=== PATIENT | female | born 1965 | race African-American/Black ===

== ENCOUNTER 2019-05-28 10:04 | Day surgery (SDC) | payer BC ==
[2019-05-27 17:05] VITALS: BMI 27.1
[2019-05-28] MEDS ORDERED: PROPOFOL 20 ML ONE ×2 (10:28)
[2019-05-28 12:08] VITALS: TEMP 98.5
[2019-05-28 12:20] VITALS: BP 135/83; PULSE 56
--- NOTE | 2019-05-30 15:13 | PATH ---
Surgical Pathology Report Patient Name: ALBERTA MYRICK [facility]. Rec. #: [id number] /Age/Gender: 1965 (Age: 53) / F Account: [id number] Location: [facility] Taken: 05/28/2019 Received: 05/28/2019 Reported: 05/30/2019 Physicians: Andressa Pablo M.D. Specimen(s) Received A: SECOND PORTION DUODENUM B: ANTRUM C: GE JUNCTION Clinical History Abdominal pain Postoperative diagnosis: Erosive gastritis Final Diagnosis A. DUODENUM, SECOND PORTION, BIOPSY: DUODENAL MUCOSA WITH NO PATHOLOGIC CHANGES. NO HISTOLOGIC EVIDENCE OF GLUTEN SENSITIVE ENTEROPATHY (CELIAC SPRUE) IDENTIFIED. B. STOMACH, ANTRUM, BIOPSY: GASTRIC ANTRAL MUCOSA WITH MILD CHRONIC GASTRITIS. IMMUNOSTAIN FOR H. PYLORI IS NEGATIVE. C. GE JUNCTION, BIOPSY: SQUAMOUS AND GASTRIC MUCOSA WITH CHRONIC INFLAMMATION. NO INTESTINAL METAPLASIA IDENTIFIED (NO JOHNSON'S IDENTIFIED). Electronically Signed Fredy Lomas M.D. Gross Description A. Received in formalin, labeled "biopsy second portion of duodenum" is a kc, irregular portion of soft tissue measuring 0.6 cm. in greatest dimension. The specimen is submitted in toto in one cassette. B. Received in formalin, labeled "biopsy gastric antrum" is a kc, irregular portion of soft tissue measuring 0.3 cm. in greatest dimension. The specimen is submitted in toto in one cassette. C. Received in formalin, labeled "biopsy GE junction" are 2 kc, irregular portions of soft tissue measuring 0.2 and 0.3 cm. in greatest dimension. The specimens are submitted in toto in one cassette. 05/29/2019 saudi05/29/2019
== END 2019-05-28 12:45 | disposition home or self-care (01) ==
LOC: FASU-ENDO 10:04
PROVIDERS: ATTEND Internal Medicine Gastroenterology
PROC: 0DB68ZX Excision of Stomach, Via Natural or Artificial Opening Endoscopic, Diagnostic (ICD-10-PCS; 2019-05-28)
PROC: 0DB48ZX Excision of Esophagogastric Junction, Via Natural or Artificial Opening Endoscopic, Diagnostic (ICD-10-PCS; 2019-05-28)
PROC: 0DB98ZX Excision of Duodenum, Via Natural or Artificial Opening Endoscopic, Diagnostic (ICD-10-PCS; principal; 2019-05-28 11:29)
DX: K29.50 Unspecified chronic gastritis without bleeding (principal); K20.8 Other esophagitis; R10.13 Epigastric pain
CPT/HCPCS: 88305-TC; 88342-TC

== ENCOUNTER 2022-05-26 07:26 | Day surgery (SDC) | payer BC, OTHER ==
[2022-05-23 17:13] VITALS: BMI 28.4
[2022-05-26] MEDS ORDERED: LIDOCAINE HCL/PF 2% SDV 5ML VIAL ONE (07:40)
[2022-05-26] MEDS ORDERED: PROPOFOL 160 ML ONE (07:40)
[2022-05-26 10:06] VITALS: BP 121/65; PULSE 80; RESP 18; TEMP 98
== END 2022-05-26 10:40 | disposition home or self-care (01) ==
LOC: FASU-ENDO 07:26
PROVIDERS: ATTEND Internal Medicine Gastroenterology
PROC: 0DB98ZX Excision of Duodenum, Via Natural or Artificial Opening Endoscopic, Diagnostic (ICD-10-PCS; 2022-05-26)
PROC: 0DB78ZX Excision of Stomach, Pylorus, Via Natural or Artificial Opening Endoscopic, Diagnostic (ICD-10-PCS; 2022-05-26)
PROC: 0DB48ZX Excision of Esophagogastric Junction, Via Natural or Artificial Opening Endoscopic, Diagnostic (ICD-10-PCS; 2022-05-26)
PROC: 0DBH8ZX Excision of Cecum, Via Natural or Artificial Opening Endoscopic, Diagnostic (ICD-10-PCS; principal; 2022-05-26 08:32)
DX: Z12.11 Encounter for screening for malignant neoplasm of colon (principal); D12.0 Benign neoplasm of cecum; K64.1 Second degree hemorrhoids; K57.30 Diverticulosis of large intestine without perforation or abscess without bleeding; K64.8 Other hemorrhoids; K29.70 Gastritis, unspecified, without bleeding
CPT/HCPCS: 88305-TC; 88342-TC